=== PATIENT | female | born 1945 | race Caucasian/White ===

== ENCOUNTER → 2018-08-02 12:43 | Outpatient (CLI) | payer MEDICARE, BC ==
[2014-05-09 15:24] VITALS: BMI 34.6
[~2018-08-02 12:43] MED LIST: ACETAMINOPHEN500 M1 PO; BAYER CHEWABLE81 MG PO; FISH OIL 1,0001 CA1 PO; LODINE400 MG PO; NORVASC5 MG PO; PRILOSEC20 MG PO
--- NOTE | 2018-08-09 10:39 | EC ---
PATIENT:PITER CAPONE DATE OF SERVICE: 08/02/18 SEX: F MEDICAL RECORD: [id number] DATE OF : 41 [facility] AGE OF PATIENT: 73 ADMISSION DATE: 08/02/18 REFERRING PHYSICIAN: INTERPRETING PHYSICIAN: PHYLLIS GONZALES MD ECHOCARDIOGRAM REPORT ECHO CHARGES 4 ECHO COMPLETE Date: 08/02/18 CLINICAL DIAGNOSIS: RECENT CHF, HX OF CARDIOMYOPATHY/ HTN/TR/AI ECHOCARDIOGRAPHIC MEASUREMENTS (adult normal given) AC root (d.<3.7cm) 3.0 cm LV Septum d (<1.2 cm> 1.4 cm Valve Excursion 1.6 cm LV Septum (systole) 1.6 cm Left Atria (s.<4.0cm> 3.8 cm LVPW d(<1.2cm) 1.4 cm RV (d.<2.3cm) 3.3 cm LVPW (sytole) 1.5 cm LV diastole(<5.6CM) 5.3 cm MV E-F(>70mm/sec) cm LV systole 3.6 cm LVOT Diameter 1.7 cm MV exc.(>10mm) 1.5 cm Est.ejection fraction (50-75%) % DOPPLER: LVIT cm/sec A 94.0 cm/sec E 111 cm/sec LA cm/sec RVSP 61 mmHg LVOT 101 cm/sec AOP1/2T 584 m/s Asc. Ao 168 cm/sec RVOT 98 cm/sec RA cm/sec PA 127 cm/sec AV Gradient Peak 11.32mmHg AV Mean 6.18 mmHg AV Area 1.3 cm MV Gradient Peak 7.09 mmHg MV Mean 2.42 mmHg MV Area cm COMMENTS: Top Edge Beveler: 2 LIBBY MCKEON Machine Binding Folder: 1 Dr. Gonzales TAPE# PACS Pericardial Effusion N DATE OF SERVICE: PROCEDURE: Echocardiogram. FINDINGS: 1. Left ventricular chamber size is within normal limits. Left ventricular systolic function is normal. Overall ejection fraction estimated at 60%. 2. Left atrium is within normal limits at 3.8 cm. Right atrium and right ventricle chamber sizes are mildly dilated. 3. Valvular structures have normal structure and motion. ECHOCARDIOGRAM REPORT [id number] PITER CAPONE 4. Doppler interrogation reveals mild aortic insufficiency, mild mitral regurgitation, moderate tricuspid regurgitation, no other valvular insufficiency or stenosis. Pulmonary systolic pressure is estimated at 61 mmHg. 5. No evidence of pericardial effusion or left ventricular thrombus. TRANSINT:[id number] Voice Confirmation ID: [id number] DOCUMENT ID: [id number] PHYLLIS GONZALES MD at 1039 CC: [id number] DICTATION DATE: 08/03/18 1209 SECURITY ADVISOR: 08/03/18 1723 DEP CLI 08/02/18 [id number] [place] [address]
== END | disposition home or self-care (01) ==
LOC: D.HCCARDIO 12:43
PROVIDERS: ATTEND Internal Medicine Interventional Cardiology
DX: I10 Essential (primary) hypertension (principal)

== ENCOUNTER → 2019-02-05 13:00 | Outpatient (CLI) | payer MEDICARE, BC ==
[2014-05-09 15:24] VITALS: BMI 34.6
[2019-02-05 13:15] LABS: ANION GAP 7.4 mmol/L (8-16); CALCIUM 8.7 mg/dL (8.5-10.1); CREATININE - SERUM 1.1 mg/dL (0.6-1.3); POTASSIUM - SERUM 4.4 mmol/L (3.5-5.1)
[2019-02-07 07:14] LABS: ANA REFLEX - DIRECT Negative (Negative); ANA REFLEX - SCL-70 <0.2 AI (0.0-0.9)
== END | disposition home or self-care (01) ==
LOC: D.LABREF 13:00
PROVIDERS: ATTEND Internal Medicine Pulmonary Disease
DX: I27.20 Pulmonary hypertension, unspecified (principal)

== ENCOUNTER → 2019-10-22 09:19 | Outpatient (CLI) | payer MEDICARE, BC ==
[2014-05-09 15:24] VITALS: BMI 34.6
== END | disposition home or self-care (01) ==
LOC: D.LAB 09:19
PROVIDERS: ATTEND Internal Medicine Pulmonary Disease
DX: Z11.59 Encounter for screening for other viral diseases (principal)

== ENCOUNTER → 2019-10-24 09:20 | Outpatient (CLI) | payer MEDICARE, BC ==
[2014-05-09 15:24] VITALS: BMI 34.6
== END | disposition home or self-care (01) ==
LOC: D.RT 10-17 11:00
PROVIDERS: ATTEND Internal Medicine Pulmonary Disease
DX: I27.20 Pulmonary hypertension, unspecified (principal)

== ENCOUNTER → 2019-10-31 12:00 | Outpatient (CLI) | payer MEDICARE, BC ==
[2014-05-09 15:24] VITALS: BMI 34.6
== END | disposition home or self-care (01) ==
LOC: D.CT 12:00 → D.RT 14:00
PROVIDERS: ATTEND Internal Medicine Pulmonary Disease
DX: I27.20 Pulmonary hypertension, unspecified (principal); R06.00 Dyspnea, unspecified

== ENCOUNTER → 2019-11-27 13:07 | Outpatient (CLI) | payer MEDICARE, BC ==
[2014-05-09 15:24] VITALS: BMI 34.6
== END | disposition home or self-care (01) ==
LOC: D.HCCECHO 13:07
PROVIDERS: ATTEND Internal Medicine Cardiovascular Disease
DX: I35.1 Nonrheumatic aortic (valve) insufficiency (principal)